=== PATIENT | male | born 1960 | race Hispanic/Latino ===

== ENCOUNTER 2022-08-16 06:21 | Day surgery (SDC) | payer BC ==
[2022-08-15 12:28] VITALS: BMI 27.1
[~2022-08-16 06:21] MED LIST: EPINEPHrine 0.3 MG, Dextrose 50% 3 ML in Ophthalmic Irrigation Solution 500 ML IRR SCH
[2022-08-16] MEDS ORDERED: Midazolam HCl 2 mg/2 ml Vial ONE (06:50)
[2022-08-16] MEDS ORDERED: Fentanyl 100 MCG/2 ML VIAL ONE (06:50)
[2022-08-16] MEDS ORDERED: Cyclopentolate 1% Opth Drop 2 ML BOT ONE (07:12)
[2022-08-16] MEDS ORDERED: Phenylephrine 2.5% Ophth Soln 5 ML BOT ONE (07:12)
[2022-08-16] MEDS ORDERED: Lidocaine 1% PF 5 ML VIAL ONE (07:48)
[2022-08-16] MEDS ORDERED: PROPOFOL 200 MG/20 ML VIAL ONE (07:48)
[2022-08-16] MEDS ORDERED: Lidocaine 4% PF 5 ML AMP ONE (07:48)
[2022-08-16] MEDS ORDERED: Triamcinolone 40 MG/ML VIAL ONE (07:48)
[2022-08-16] MEDS ORDERED: Bupivacaine 0.75% 10 ML VIAL ONE (07:48)
[2022-08-16] MEDS ORDERED: CEFAZOLIN 1 GM VIAL ONE (07:48)
[2022-08-16] MEDS ORDERED: Maxitrol 0.1% Opth Oint 3.5 GM TUBE ONE (07:48)
== END 2022-08-16 09:12 | disposition home or self-care (01) ==
LOC: SDC 06:21
PROVIDERS: ATTEND Ophthalmology Retina Specialist
PROC: 08T53ZZ Resection of Left Vitreous, Percutaneous Approach (ICD-10-PCS; principal; 2022-08-16)
PROC: 08NF3ZZ Release Left Retina, Percutaneous Approach (ICD-10-PCS; principal; 2022-08-16)
DX: H35.372 Puckering of macula, left eye (principal); E11.9 Type 2 diabetes mellitus without complications; I10 Essential (primary) hypertension; E78.5 Hyperlipidemia, unspecified; F17.200 Nicotine dependence, unspecified, uncomplicated; N40.0 Benign prostatic hyperplasia without lower urinary tract symptoms; Z79.4 Long term (current) use of insulin; Z79.84 Long term (current) use of oral hypoglycemic drugs; Z79.899 Other long term (current) drug therapy
CPT/HCPCS: J0171; J0690; J2250; J2704; J3010; J3301; J3490